=== PATIENT | female | born 1935 | race African-American/Black ===

== ENCOUNTER 2017-04-08 09:42 | Outpatient (CLI) | payer MEDICARE, MEDICAID ==
[~2017-04-08 09:42] MED LIST: NEOMYC-POLYM-D3.5 G1 OP; NKM; PRED FORTE1 ML OP; ZYMAXID2.5 ML LEFT EYE
--- NOTE | 2017-04-08 16:22 | GI Initial Consult Note ---
History of Present Illness General Date patient seen: Apr 08, 2017 Time patient seen: 10:00 Referring physician: JAMILAH Reason for Consultation: ABDOMINAL PAIN Present Illness HPI 81 year old pleasant female patient referred by Dr. Andrade for c/o of abdominal pain and weight loss. According to the patient, she had "alot" of weight loss in the past few months. She was admitted here at [facility] last year s/p EGD with noted to have a hiatal hernia and biopsy results showed H. Pylori positive which the patient states as not been treated. Denies any N/V /D. Home Meds Reported Medications Prednisolone Acetate (PRED FORTE) 1 Ml Drops.susp, 1 ML OP 03/18/16 Gatifloxacin (ZYMAXID) 2.5 Ml Drops, 2.5 ML LEFT EYE, ML 03/18/16 Kevin/Polymyx B Sulf/Dexameth (XJRBQT-MOCUX-EZGXRLV EYE OINTM) 3.5 Gm Oint...g., 3.5 GM OP, GM 03/18/16 No Known Medications* (NKM - No Known Medications*) ., 0 ., 0 Refills 03/08/16 Med list reviewed/reconciled: Yes Allergies: Coded Allergies: PENICILLINS (Verified Allergy, Mild, 03/07/16) Patient History History Provided By: Patient, Medical Record PMH Narrative Past Medical History: see triage record Past Surgical History: hysterectomy, other - cataract/retinal detachment Social History: Denies: smoking Social History Narrative with daughter Now: No Reviewed Nursing Documentation: PMH: Agreed, PSxH: Agreed Nursing Documentation-PMH Hx Cardiac Problems: No Hx Cancer: No Hx Gastrointestinal Problems: HH, gastritis Hx Neurological Problems: No Social History: Denies: alcohol use, drug use, other, smoking Review of Systems All Other Systems: negative except mentioned in HPI Physical Exam T 98.5 BP 134/56 P 70 98 RA HT 5'1 WT 174.2 Sp02 EP Interpretation: reviewed General Appearance: well appearing, no apparent distress, alert Head: normocephalic EENT: normal ENT inspection Neck: supple Respiratory: normal breath sounds, no respiratory distress Cardiovascular: normal rate Gastrointestinal: normal inspection, non tender, soft Rectal: deferred Genitourinary: normal inspection Musculoskeletal: normal inspection, back normal Neurologic: normal inspection, alert, oriented x3, responsive Psychiatric: normal inspection, judgement/insight normal, memory normal Skin: normal inspection, normal color, no rash Lymphatic: normal inspection, no adenopathy GI: Plan Problems: (1) Colonoscopy planned (2) Hiatal hernia (3) Gastritis (4) Helicobacter pylori (H. pylori) (5) Abdominal pain Plan S/P EGD SUMMARY 03/19/16 1. A 1 to 2 cm hiatal hernia. 2. Status post random biopsy of the stomach. >> H. Pylori POSITIVE 3. No lesions were identified to explain the patient's pain. Pt scheduled for colonoscopy 04/14/17. - CLD + Suprep prep instructions given. labs to be drawn: CBC, CMP, CEA monitor weight loss, will consider APCT rx H. Pylori Tx >> Amox + biaxin + Omeprazole Seen with Dr. Clark. Thank you for referring this patient. Zamzam Noonan N.P. Apr 08, 2017 16:22
== END 2017-04-08 10:15 | disposition home or self-care (01) ==
LOC: PAN 09:42
DX: K44.9 Diaphragmatic hernia without obstruction or gangrene (principal); K29.70 Gastritis, unspecified, without bleeding; A04.8 Other specified bacterial intestinal infections; R10.9 Unspecified abdominal pain; Z88.0 Allergy status to penicillin; R63.4 Abnormal weight loss; Z79.52 Long term (current) use of systemic steroids
CPT/HCPCS: 99201

== ENCOUNTER 2017-04-14 05:39 | Day surgery (SDC) | payer MEDICARE, MEDICAID ==
[~2017-04-14] VITALS: Ht 153.7 cm; Wt 77.1 kg
[2017-04-14] VITALS (8 sets, daily range): BP systolic 136–186; BP diastolic 57–100
[2017-04-14] MEDS ORDERED: ZOFRAN8 MG ORAL (07:47)
[2017-04-14] MEDS ORDERED: LUMIGAN2.5 ML LEFT EYE (07:47)
[2017-04-14] MEDS ORDERED: SIMBRINZA 1%-0.28 ML LEFT EYE (07:47)
[2017-04-14] MEDS ORDERED: OMEPRAZOLE40 M1 ORAL (07:47)
[2017-04-14] MEDS ORDERED: BISACODYL5 MG ORAL (07:47)
[2017-04-14] MEDS ORDERED: AMOXICILLI250 MG/5 M ORAL (07:47)
[2017-04-14] MEDS ORDERED: DICYCLOMINE HCL10 MG PO (07:47)
[2017-04-14] MEDS ORDERED: CLARITHROMYCIN500 MG PO (07:47)
[2017-04-14 08:01] LABS: BASOPHILS % (AUTO) 1.3 % (0.0-2.0); EOSINOPHILS % (AUTO) 2.3 % (0.0-3.0); LYMPHOCYTES % (AUTO) 19.5 % (20.0-45.0); MEAN CORPUSCULAR HEMOGLOBIN 30.4 PG (27.0-31.0); MEAN CORPUSCULAR VOLUME 92 FL (80-99); MEAN PLATELET VOLUME 5.6 FL (6.5-10.1); MONOCYTES % (AUTO) 7.1 % (1.0-10.0); NEUTROPHILS % (AUTO) 69.8 % (45.0-75.0); PLATELET COUNT 427 K/UL (150-450); RED CELL DISTRIBUTION WIDTH 13.6 % (11.6-14.8); WHITE BLOOD COUNT 8.1 K/UL (4.8-10.8)
--- NOTE | 2017-04-14 08:39 | Anethesia Preoperative Eval ---
Anesthesia Pre-op PMH/ROS General Date of Evaluation: Apr 14, 2017 Anesthesiologist: Emigdio ASA Score: ASA 2 Mallampati Score Class I : Soft palate, uvula, fauces, pillars visible Class II: Soft palate, uvula, fauces visible Class III: Soft palate, base of uvula visible Class IV: Only hard plate visible Mallampati Classification: Class II Surgeon: Amber Diagnosis: Weight Loss Surgical Procedure: Colonoscopy Anesthesia History: none Family History: no anesthesia problems Allergies: Coded Allergies: PENICILLINS (Verified Allergy, Mild, 03/07/16) Medications: see eMAR Past Medical History Cardiovascular: Denies: CAD, HTN, [place], arrhythmia, other, valve dz Pulmonary: Denies: COPD, RUPESH, asthma, other Gastrointestinal/Genitourinary: Reports: other - abdominal hernia, Denies: CRI, ESRD, GERD Neurologic/Psychiatric: Reports: depression/anxiety, Denies: CVA, TIA, dementia, other Endocrine: Denies: DM, hypothyroidism, other, steroids HEENT: Denies: KOBUK (L), KOBUK (R), cataract (L), cataract (R), glaucoma, other Hematology/Immune: Denies: DVT, anemia, bleeding disorder, other Musculoskeletal/Integumentary: Denies: DDD, DJD, OA, RA, edema, other PSxH Narrative: Deniees Anesthesia Pre-op Phys. Exam Physician Exam Last Vital Signs Date Time Temp Pulse Resp B/P Pulse Ox O2 Delivery O2 Flow Rate FiO2 04/14/17 07:32 98.1 71 20 142/62 100 Room Air Constitutional: NAD Cardiovascular: RRR Respiratory: CTA Airway Exam Mallampati Score: Class II MO: full ROM: full Teeth: intact Anesthesia Pre-op A/P Labs Hematology Test 04/14/17 07:30 White Blood Count 8.1 K/UL (4.8-10.8) Red Blood Count 3.90 M/UL (4.20-5.40) L Hemoglobin 11.9 G/DL (12.0-16.0) L Hematocrit 35.9 % (37.0-47.0) L Mean Corpuscular Volume 92 FL (80-99) Mean Corpuscular Hemoglobin 30.4 PG (27.0-31.0) Mean Corpuscular Hemoglobin Concent 33.0 G/DL (32.0-36.0) Red Cell Distribution Width 13.6 % (11.6-14.8) Platelet Count 427 K/UL (150-450) Mean Platelet Volume 5.6 FL (6.5-10.1) L Neutrophils (%) (Auto) 69.8 % (45.0-75.0) Lymphocytes (%) (Auto) 19.5 % (20.0-45.0) L Monocytes (%) (Auto) 7.1 % (1.0-10.0) Eosinophils (%) (Auto) 2.3 % (0.0-3.0) Basophils (%) (Auto) 1.3 % (0.0-2.0) Studies Pre-op Studies: EKG - RBBB-baseline Risk Assessment & Plan Assessment: ASA II Plan: MAC Status Change Before Surgery: No Pre-Antibiotics Drug: N/A RC SANTAMARIA M.D. Apr 14, 2017 08:39
[2017-04-14] MEDS ORDERED: LR 1000ml 1,000 ML IVLG SCH (08:53)
[2017-04-14] MEDS ORDERED: Lidocaine 1% MPF 10mg/ml 5ml ONE (09:00)
[2017-04-14] MEDS ORDERED: Propofol 10mg/ml 20ml IV ONE (09:00)
[2017-04-14] MEDS ORDERED: DiphenhydrAMINE 50mg/ml Inj IVP PRN (09:00)
[2017-04-14 09:04] LABS: ALANINE AMINOTRANSFERASE 6 U/L (3-33); ALBUMIN/GLOBULIN RATIO 0.9 (1.0-2.7); ANION GAP 15 (5-15); ASPARTATE AMINO TRANSFERASE 12 U/L (5-40); CALCIUM 8.9 mg/dL (8.6-10.2); CARBON DIOXIDE 23 mEQ/L (20-30); CHLORIDE 105 mEQ/L (98-107); CREATININE 0.7 mg/dL (0.5-0.9); HEMOLYSIS 69; POTASSIUM 4.8 mEQ/L (3.4-4.9); SODIUM 143 mEQ/L (135-145); TOTAL PROTEIN 6.7 g/dL (6.6-8.7)
--- NOTE | 2017-04-14 09:23 | Pre-Procedure Note/Attestation ---
Pre-Procedure Note/Attestation Complete Prior to Procedure Planned Procedure: not applicable Procedure Narrative: colonoscopy Indications for Procedure Pre-Operative Diagnosis: wt loss Attestation I attest that I discussed the nature of the procedure; its benefits; risks and complications; and alternatives (and the risks and benefits of such alternatives ), prior to the procedure, with the patient (or the patient's legal registered representative). I attest that, if there was a reasonable possibility of needing a blood transfusion, the patient (or the patient's legal registered representative) was given the [facility] of Health Services standardized written summary, pursuant to the Jose Meghana Blood Safety Act ([place] Health and Safety Code # 1645, as amended). I attest that I re-evaluated the patient just prior to the surgery and that there has been no change in the patient's H&P, except as documented below: KARISSA NGUYỄN Apr 14, 2017 09:23
--- NOTE | 2017-04-14 09:23 | Short Stay Surgery H&P ---
History of Present Illness History of Present Illness Chief Complaint see full dictation HPI Nirali Costa is a 81 year old female who was admitted on for Weight Loss Patient History Allergies: Coded Allergies: PENICILLINS (Verified Allergy, Mild, 03/07/16) PAST MEDICAL HISTORY: Past Surgeries: Social History: Medication History Scheduled Amoxicillin* (Amoxicillin*), 1,000 MG ORAL BID, (Reported) Bimatoprost (Lumigan), 1 DROP LEFT EYE BED, (Reported) Bisacodyl* (Dulcolax*), 5 MG ORAL DAILY, (Reported) Brinzolamide/Brimonid Tart (Simbrinza 1%-0.2% Eye Drops), 1 DROP LEFT EYE BID, ( Reported) Clarithromycin* (Clarithromycin*), 500 MG PO Q12HR, (Reported) Dicyclomine Hcl* (Dicyclomine Hcl*), 10 MG PO QID, (Reported) Omeprazole (Omeprazole), 40 MG ORAL BID, (Reported) Scheduled PRN Ondansetron Hcl* (Zofran*), 4 MG ORAL Q6H PRN for Nausea & Vomiting, (Reported) Discontinued Medications Gatifloxacin (Zymaxid), 2.5 ML LEFT EYE, (Reported) Discontinued Reason: Pt stopped taking med Kevin/Polymyx B Sulf/Dexameth (Tcesbx-Mzoef-Tvhqwao Eye Ointm), 3.5 GM OP, ( Reported) Discontinued Reason: Pt stopped taking med Prednisolone Acetate (Pred Forte), 1 ML OP, (Reported) Discontinued Reason: Pt stopped taking med Physical Exam Vital Signs Last Vital Signs Date Time Temp Pulse Resp B/P Pulse Ox O2 Delivery O2 Flow Rate FiO2 04/14/17 07:32 98.1 71 20 142/62 100 Room Air Labs Laboratory Tests Test 04/14/17 07:30 04/14/17 08:30 White Blood Count 8.1 K/UL (4.8-10.8) Red Blood Count 3.90 M/UL (4.20-5.40) L Hemoglobin 11.9 G/DL (12.0-16.0) L Hematocrit 35.9 % (37.0-47.0) L Mean Corpuscular Volume 92 FL (80-99) Mean Corpuscular Hemoglobin 30.4 PG (27.0-31.0) Mean Corpuscular Hemoglobin Concent 33.0 G/DL (32.0-36.0) Red Cell Distribution Width 13.6 % (11.6-14.8) Platelet Count 427 K/UL (150-450) Mean Platelet Volume 5.6 FL (6.5-10.1) L Neutrophils (%) (Auto) 69.8 % (45.0-75.0) Lymphocytes (%) (Auto) 19.5 % (20.0-45.0) L Monocytes (%) (Auto) 7.1 % (1.0-10.0) Eosinophils (%) (Auto) 2.3 % (0.0-3.0) Basophils (%) (Auto) 1.3 % (0.0-2.0) Sodium Level 143 mEQ/L (135-145) Potassium Level 4.8 mEQ/L (3.4-4.9) Chloride Level 105 mEQ/L (98-107) Carbon Dioxide Level 23 mEQ/L (20-30) Anion Gap 15 (5-15) Blood Urea Nitrogen 7 mg/dL (7-23) Creatinine 0.7 mg/dL (0.5-0.9) Estimat Glomerular Filtration Rate mL/min (>60) Glucose Level 107 mg/dL (74-106) H Calcium Level 8.9 mg/dL (8.6-10.2) Total Bilirubin 0.2 mg/dL (0.0-1.2) Aspartate Amino Transf (AST/SGOT) 12 U/L (5-40) Alanine Aminotransferase (ALT/SGPT) 6 U/L (3-33) Alkaline Phosphatase 69 U/L (35-104) Total Protein 6.7 g/dL (6.6-8.7) Albumin 3.3 g/dL (3.5-5.2) L Globulin 3.4 g/dL Albumin/Globulin Ratio 0.9 (1.0-2.7) L Carcinoembryonic Antigen Pending Plan Attestation Are the patient's medical conditions optimized for surgery? KARISSA NGUYỄN Apr 14, 2017 09:23
--- NOTE | 2017-04-14 09:56 | Endoscopy Procedure Note ---
Endoscopy Procedure Note Indication for Procedure: wi loss Procedures Performed: colonoscopy Operative Findings/Diagnosis: one polyp Specimen: yes Pt Tolerated Procedure Well: Yes Estimated Blood Loss: none Anesthesiologist: clover Anesthesia: MAC Implant(s) used?: No 50 yrs or older w/o bx or poly: Not Applicable 10yrs. F/U not recommended: Not Applicable KARISSA NGUYỄN Apr 14, 2017 09:56
--- NOTE | 2017-04-14 09:57 | Immediate Post-Op Evaluation ---
Immediate Post-Op Evalulation Immediate Post-Op Evalulation Procedure: Colonoscopy Date of Evaluation: Apr 14, 2017 Time of Evaluation: 09:57 IV Fluids: 500 Blood Products: 0 Estimated Blood Loss: 0 Urinary Output: 0 Blood Pressure Systolic: 184 Blood Pressure Diastolic: 84 Pulse Rate: 70 Respiratory Rate: 16 O2 Sat by Pulse Oximetry: 100 Temperature (Fahrenheit): 97.6 Pain Score (1-10): 0 Nausea: No Vomiting: No Complications 0 Patient Status: awake, reacts, patent, none Hydration Status: adequate Drug: N/a RC SANTAMARIA M.D. Apr 14, 2017 09:57
--- NOTE | 2017-04-14 10:55 | 48 Hour Post Anesthesia Eval ---
Post Anesthesia Evaluation Procedure: Colonoscopy Date of Evaluation: Apr 14, 2017 Time of Evaluation: 10:35 Blood Pressure Systolic: 156 0: 57 Pulse Rate: 85 Respiratory Rate: 16 Temperature (Fahrenheit): 97.6 O2 Sat by Pulse Oximetry: 100 Airway: patent Nausea: No Vomiting: No Pain Intensity: 0 Hydration Status: adequate Cardiopulmonary Status: at baseline Mental Status/LOC: patient returned to baseline Post-Anesthesia Complications: 0 Follow-up care needed: ready to discharge RC SANTAMARIA M.D. Apr 14, 2017 10:55
--- NOTE | 2017-04-14 16:30 | Procedure Note ---
DATE OF PROCEDURE: 04/14/2017 SURGEON: Erich Clark M.D. ANESTHESIOLOGIST: Dr. Beal. PROCEDURE: Colonoscopy with snare polypectomy. INSTRUMENT: Olympus adult flexible colonoscope. INDICATION: Weight loss. The procedure, risks, benefits, and possible consequences, including hemorrhage, aspiration, perforation and infection, and alternative treatments, were explained to the patient/legal guardian by Dr. Erich Clark and the patient/legal guardian understood and accepted these risks. DESCRIPTION OF PROCEDURE: After informed consent was obtained and the patient was adequately sedated, first rectal exam was performed, which was positive for external and internal hemorrhoids. Then, the scope was advanced from rectum into the cecum, documented by appendiceal orifice, ileocecal valve, and upper quadrant palpation. Quality of prep was very good. The patient had one polyp, sessile, measured roughly about 4 to 5 mm in the cecum, removed with the snare polypectomy technique. There were no further polyps seen in this colonoscopy examination. The patient has some diverticulosis in the left colon. Retroflexion of rectum showed evidence of medium-sized internal hemorrhoids. SUMMARY OF FINDINGS: 1. Internal and external hemorrhoids. 2. Diverticulosis. 3. One colonic polyp removed. See above for details. RECOMMENDATIONS: 1. Follow up biopsies and treat accordingly. 2. We will recommend repeat colonoscopy in 5 years. 3. The patient has not had a colonoscopy in the last three years. Erich Clark M.D. DR: JADA JOB#: [id number] CC:
--- NOTE | 2017-04-15 08:15 | Cardiology Report ---
APPROVED REPORT EKG Measurement Heart [id number] AL [id number] Normal sinus rhythm with sinus arrhythmia Right bundle branch block Abnormal ECG
== END 2017-04-14 11:45 | disposition home or self-care (01) ==
LOC: GAS 05:39
DX: R63.4 Abnormal weight loss (principal); D12.0 Benign neoplasm of cecum; K57.30 Diverticulosis of large intestine without perforation or abscess without bleeding; K64.4 Residual hemorrhoidal skin tags; K64.8 Other hemorrhoids; I45.10 Unspecified right bundle-branch block; F32.9 Major depressive disorder, single episode, unspecified; F41.9 Anxiety disorder, unspecified; Z88.0 Allergy status to penicillin
CPT/HCPCS: 36415; 45385; 80053; 82378; 85025; 93005; J0360; J2704; 94003; 94150

== ENCOUNTER 2017-04-29 10:01 | Outpatient (CLI) | payer MEDICARE, MEDICAID ==
[~2017-04-29 10:01] MED LIST changes: +AMOXICILLI250 MG/5 M ORAL; +BISACODYL5 MG ORAL; +CLARITHROMYCIN500 MG PO; +DICYCLOMINE HCL10 MG PO; +LUMIGAN2.5 ML LEFT EYE; +OMEPRAZOLE40 M1 ORAL; +SIMBRINZA 1%-0.28 ML LEFT EYE; +ZOFRAN8 MG ORAL
--- NOTE | 2017-04-29 17:22 | GI Progress Note ---
Assessment/Plan Problems: (1) Constipation ICD Codes: K59.00 - Constipation, unspecified SNOMED: 84248045 (2) Helicobacter pylori (H. pylori) ICD Codes: A04.8 - Other specified bacterial intestinal infections SNOMED: 437456689 (3) Abdominal pain ICD Codes: R10.9 - Unspecified abdominal pain SNOMED: 16423577 (4) Gastritis ICD Codes: K29.70 - Gastritis, unspecified, without bleeding SNOMED: 9936375 Status: stable Status Narrative Seen with Dr. Clark. Assessment/Plan SUMMARY OF FINDINGS: 1. Internal and external hemorrhoids. 2. Diverticulosis. 3. One colonic polyp removed. See above for details. RECOMMENDATIONS: HP +, currently doing treatment rx Linzess 145mcg RTC x 3 months for repeat BT repeat colonoscopy x 5 years Subjective Subjective currently taking tx for HP no GI symptoms Objective T 97.5 BP 156/65 P 66 94 RA General Appearance: no apparent distress, alert Cardiovascular: normal rate Respiratory/Chest: normal breath sounds, no respiratory distress Abdominal Exam: normal bowel sounds, non tender, soft Extremities: normal range of motion, non-tender Zamzam Noonan N.P. Apr 29, 2017 17:22
[2017-04-29] MEDS ORDERED: LINZESS145 MCG PO (17:23)
== END 2017-04-29 10:30 | disposition home or self-care (01) ==
LOC: PAN 10:01
DX: K59.00 Constipation, unspecified (principal); A04.8 Other specified bacterial intestinal infections; R10.9 Unspecified abdominal pain; K29.70 Gastritis, unspecified, without bleeding; Z86.010 Personal history of colon polyps
CPT/HCPCS: 99211

== ENCOUNTER 2018-04-02 13:27 | Outpatient (CLI) | payer MEDICARE, MEDICAID ==
[~2018-04-02 13:27] MED LIST changes: +LINZESS145 MCG PO
[2018-04-02 15:14] VITALS: BP 139/64
[2018-04-02] MEDS ORDERED: HYDRALAZINE HCL25 M1 ORAL (15:19)
[2018-04-02] MEDS ORDERED: GABAPENTIN300 MG ORAL (15:19)
[2018-04-02] MEDS ORDERED: ASPIR-LOW81 MG ORAL (15:19)
[2018-04-02] MEDS ORDERED: VITAMIN D400 INTLU ORAL (15:19)
[2018-04-02] MEDS ORDERED: XOPENEX0.63 MG/3 HHN (15:19)
--- NOTE | 2018-04-02 15:52 | GI Progress Note ---
Assessment/Plan Problems: (1) Helicobacter pylori (H. pylori) ICD Codes: A04.8 - Other specified bacterial intestinal infections SNOMED: 971957179 (2) Abdominal pain ICD Codes: R10.9 - Unspecified abdominal pain SNOMED: 19394111 Status: stable Status Narrative Seen with Dr. Clark. Assessment/Plan labs reviewed >> anemia history of H. Pylori s/p treatment, but never returned for BT constipation stool OB x 3 Breath Test today for H. Pylori RTC after lab results Subjective Gastrointestinal/Abdominal: Reports: no symptoms Objective Last 24 Hour Vital Signs Date Time Temp Pulse Resp B/P (MAP) Pulse Ox O2 Delivery O2 Flow Rate FiO2 04/02/18 15:14 75 139/64 99 General Appearance: WD/WN, no apparent distress, alert Cardiovascular: normal rate Respiratory/Chest: normal breath sounds, no respiratory distress Abdominal Exam: normal bowel sounds, non tender, soft Extremities: normal range of motion, non-tender Radha Noonan NP April 02, 2018 15:52
== END 2018-04-02 14:10 | disposition home or self-care (01) ==
LOC: PAN 13:27
DX: A04.8 Other specified bacterial intestinal infections (principal); R10.9 Unspecified abdominal pain; K59.00 Constipation, unspecified
CPT/HCPCS: 83013; G0463; 99202

== ENCOUNTER 2018-04-03 11:43 | Outpatient (CLI) | payer MEDICARE, MEDICAID ==
[~2018-04-03 11:43] MED LIST changes: +ASPIR-LOW81 MG ORAL; +GABAPENTIN300 MG ORAL; +HYDRALAZINE HCL25 M1 ORAL; +VITAMIN D400 INTLU ORAL; +XOPENEX0.63 MG/3 HHN
== END 2018-04-03 13:43 | disposition home or self-care (01) ==
LOC: LAB 11:43
DX: D64.9 Anemia, unspecified (principal)
CPT/HCPCS: 82270

== ENCOUNTER 2018-05-05 10:32 | Outpatient (CLI) | payer MEDICARE, MEDICAID ==
[2018-05-05 10:52] VITALS: BP 127/61
[2018-05-05] MEDS ORDERED: LINZESS145 MCG PO (10:57)
--- NOTE | 2018-05-06 12:24 | GI Progress Note ---
Assessment/Plan Problems: (1) Helicobacter pylori (H. pylori) ICD Codes: A04.8 - Other specified bacterial intestinal infections SNOMED: 994523869 (2) Hiatal hernia ICD Codes: K44.9 - Diaphragmatic hernia without obstruction or gangrene SNOMED: 33531092 (3) Failure to thrive SNOMED: 14914415 (4) Colonoscopy planned SNOMED: 170217764 (5) Constipation ICD Codes: K59.00 - Constipation, unspecified SNOMED: 34173019 (6) Gastritis ICD Codes: K29.70 - Gastritis, unspecified, without bleeding SNOMED: 9462233 (7) Abdominal pain ICD Codes: R10.9 - Unspecified abdominal pain SNOMED: 86648957 Status: stable Status Narrative Seen with Dr. Clark. Assessment/Plan [address] negative HIDA negative Colonoscopy >> 1 polyp negative H. pylori Breath Test EGD/EUS scheduled 05/13/18. - NPO @ MT day prior to procedure explained. The patient was seen and examined at bedside and all new and available data was reviewed in the patients chart. I agree with the above findings, impression and plan. (Patient seen earlier today. Signature stamp does not reflect patient encounter time.). - Erich Clark MD Subjective Gastrointestinal/Abdominal: Reports: no symptoms Objective T 97.6 BP 127/61 P 64 94 RA General Appearance: WD/WN, no apparent distress, alert Cardiovascular: normal rate Respiratory/Chest: normal breath sounds, no respiratory distress Abdominal Exam: normal bowel sounds, non tender, soft Extremities: normal range of motion, non-tender Radha Noonan TIE INSPECTOR May 06, 2018 12:24
== END 2018-05-05 11:05 | disposition home or self-care (01) ==
LOC: PAN 10:32
DX: K44.9 Diaphragmatic hernia without obstruction or gangrene (principal); B96.81 Helicobacter pylori [H. pylori] as the cause of diseases classified elsewhere; R62.7 Adult failure to thrive; K29.70 Gastritis, unspecified, without bleeding; R10.9 Unspecified abdominal pain; K59.00 Constipation, unspecified
CPT/HCPCS: 99212

== ENCOUNTER 2018-05-13 10:15 | Day surgery (SDC) | payer MEDICARE, MEDICAID ==
[2018-05-13] VITALS (8 sets, daily range): BP systolic 143–170; BP diastolic 41–89
[~2018-05-13] VITALS: Ht 154.9 cm; Wt 93.4 kg
--- NOTE | 2018-05-13 06:45 | Anethesia Preoperative Eval ---
Anesthesia Pre-op PMH/ROS General Date of Evaluation: May 13, 2018 Time of Evaluation: 06:42 Anesthesiologist: german ASA Score: ASA 3 Mallampati Score Class I : Soft palate, uvula, fauces, pillars visible Class II: Soft palate, uvula, fauces visible Class III: Soft palate, base of uvula visible Class IV: Only hard plate visible Mallampati Classification: Class II Surgeon: mariela Diagnosis: abdominal pain, failure to thrive Surgical Procedure: egd w/ eus Anesthesia History: none Social History: current smoker Family History: no anesthesia problems Allergies: Coded Allergies: PENICILLINS (Verified Allergy, Mild, 03/07/16) Medications: see eMAR Past Medical History Cardiovascular: Denies: HTN, CAD, [place], valve dz, arrhythmia, other Pulmonary: Reports: other - bronchitis Gastrointestinal/Genitourinary: Reports: other - costipation, hiatal hernia, gastritis, h. pylori Neurologic/Psychiatric: Reports: depression/anxiety HEENT: Reports: cataract (L), cataract (R), other Musculoskeletal/Integumentary: Reports: other - back pain, joint pain PSxH Narrative: vitrectomy Anesthesia Pre-op Phys. Exam Physician Exam Last Vital Signs Date Time Temp Pulse Resp B/P (MAP) Pulse Ox O2 Delivery O2 Flow Rate FiO2 05/13/18 11:06 Room Air 05/13/18 10:46 98.0 72 18 161/89 (113) 97 98.0 Constitutional: NAD Neurologic: CN 2-12 intact Cardiovascular: RRR Respiratory: CTA Gastrointestinal: S/NT/ND Airway Exam Mallampati Score: Class II MO: full Neck: short TMD: 2fb ROM: limited Dentures: upper, lower Anesthesia Pre-op A/P Studies Pre-op Studies: EKG - nsr, rbbb Risk Assessment & Plan Assessment: asa3 Plan: mac Status Change Before Surgery: No Pre-Antibiotics Drug: Lizbeth Gonzales MD May 13, 2018 06:45
[~2018-05-13 10:15] MED LIST changes: +Atropine Inj 1mg/10ml Syr IV PRN; +DiphenhydrAMINE 50mg/ml Inj IVP PRN; +Midazolam 2mg/2ml Inj IVP PRN; +fentaNYL 100 mcg/2 mL IV PRN
[2018-05-13] MEDS ORDERED: Lidocaine 1% MPF 10mg/ml 5ml ONE (11:00)
[2018-05-13] MEDS ORDERED: Propofol 200mg/20ml IV ONE (11:00)
--- NOTE | 2018-05-13 11:25 | Pre-Procedure Note/Attestation ---
Pre-Procedure Note/Attestation Complete Prior to Procedure Planned Procedure: not applicable Procedure Narrative: EUS/EGD Indications for Procedure Pre-Operative Diagnosis: anemia, wt loss Attestation I attest that I discussed the nature of the procedure; its benefits; risks and complications; and alternatives (and the risks and benefits of such alternatives ), prior to the procedure, with the patient (or the patient's legal manufacturer's representative). I attest that, if there was a reasonable possibility of needing a blood transfusion, the patient (or the patient's legal manufacturer's representative) was given the [facility] of Health Services standardized written summary, pursuant to the Jose Meghana Blood Safety Act ([place] Health and Safety Code # 1645, as amended). I attest that I re-evaluated the patient just prior to the surgery and that there has been no change in the patient's H&P, except as documented below: Erich Clark MD May 13, 2018 11:25
--- NOTE | 2018-05-13 11:26 | Short Stay Surgery H&P ---
History of Present Illness History of Present Illness Chief Complaint anemia, wt loss HPI Harwood Christian Costa is a 82 year old female who was admitted on for Abdominal Pain Patient History Allergies: Coded Allergies: PENICILLINS (Verified Allergy, Mild, 03/07/16) PAST MEDICAL HISTORY: (1) Helicobacter pylori (H. pylori) (2) Abdominal pain (3) Gastritis (4) Failure to thrive (5) Hiatal hernia (6) Constipation (7) Cataract (8) H/O vitrectomy Medication History Scheduled Aspirin* (Aspir-Low*), 81 MG ORAL DAILY, (Reported) Bimatoprost (Lumigan), 1 DROP LEFT EYE BED, (Reported) Brinzolamide/Brimonid Tart (Simbrinza 1%-0.2% Eye Drops), 1 DROP LEFT EYE BID, ( Reported) Dicyclomine Hcl* (Dicyclomine Hcl*), 10 MG PO QID, (Reported) Gabapentin* (Gabapentin*), 300 MG ORAL BEDTIME, (Reported) Hydralazine Hcl* (Hydralazine Hcl*), 25 MG ORAL EVERY 8 HOURS, (Reported) Levalbuterol Hcl (Xopenex*), 0.63 MG HHN Q4H, (Reported) Linaclotide (Linzess), 145 MCG PO PRN, (Reported) Vitamin D (Vitamin D3), 400 UNITS ORAL DAILY, (Reported) Review of Systems Cardiovascular: Reports: no symptoms Respiratory: Reports: no symptoms Skeletal: Reports: no symptoms Gastrointestinal: Reports: no symptoms Genitourinary: Reports: no symptoms Neurologic: Reports: no symptoms Endocrine: Reports: no symptoms Hematologic: Reports: no symptoms Physical Exam Vital Signs Last Vital Signs Date Time Temp Pulse Resp B/P (MAP) Pulse Ox O2 Delivery O2 Flow Rate FiO2 05/13/18 11:06 Room Air 05/13/18 10:46 98.0 72 18 161/89 (113) 97 98.0 Skin: normal HENT: normal Heart: normal Lungs: normal Abdomen: normal Extremities: normal Plan Plan of Care egd/EUS Attestation Are the patient's medical conditions optimized for surgery? Attestation Response: yes Erich Clark MD May 13, 2018 11:26
[2018-05-13] MEDS ORDERED: Sucralfate 1gm tab ORAL SCH (12:15)
--- NOTE | 2018-05-13 12:50 | Immediate Post-Op Evaluation ---
Immediate Post-Op Evalulation Immediate Post-Op Evalulation Procedure: egd/eud/argon plasma coagulation Date of Evaluation: May 13, 2018 Time of Evaluation: 12:38 IV Fluids: 400ml Blood Products: none Estimated Blood Loss: negligible Blood Pressure Systolic: 144 Blood Pressure Diastolic: 41 Pulse Rate: 80 Respiratory Rate: 18 O2 Sat by Pulse Oximetry: 100 Temperature (Fahrenheit): 97.6 Pain Score (1-10): 0 Nausea: No Vomiting: No Complications patient is alert, responsive. patient complain of chest discomfort at the end of the procedure, requesting to sit up, grasping her chest. 12 lead ecg was obtained prior to procedure that revealed nsr, sinus rbbb. after procedure a 12 lead ecg was obtained that revealed nsr with sinus arrhythmia, rbbb, lad. dr. sierra stated esophageal spasms may occur following argon plasma coagulation of the esophagus. carafate was ordered along with lab work, CBC, CPK-MB, CEA, CA19-9, BMP, triponin. Patient Status: awake, reacts, patent Hydration Status: adequate Drug: Lizbeth Gonzales MD May 13, 2018 12:50
--- NOTE | 2018-05-13 12:56 | 48 Hour Post Anesthesia Eval ---
Post Anesthesia Evaluation Procedure: egd/eud/argon plasma coagulation Date of Evaluation: May 13, 2018 Time of Evaluation: 12:50 Blood Pressure Systolic: 170 0: 72 Pulse Rate: 76 Respiratory Rate: 18 Temperature (Fahrenheit): 98.6 O2 Sat by Pulse Oximetry: 100 Airway: patent Nausea: No Vomiting: No Pain Intensity: 0 Hydration Status: adequate Cardiopulmonary Status: stable Mental Status/LOC: patient returned to baseline Post-Anesthesia Complications: none Follow-up care needed: N/A Lizbeth Muhammad MD May 13, 2018 12:56
[2018-05-13 13:08] LABS: ANION GAP 9 mmol/L (5-15); BASOPHILS % (AUTO) 1.3 % (0.0-2.0); BLOOD UREA NITROGEN 13 mg/dL (7-18); CALCIUM 8.9 MG/DL (8.5-10.1); CARBON DIOXIDE 25 MMOL/L (21-32); CHLORIDE 108 MMOL/L (98-107); CREATININE 0.9 MG/DL (0.55-1.30); EOSINOPHILS % (AUTO) 2.1 % (0.0-3.0); HEMOGLOBIN 11.1 G/DL (12.0-16.0); LYMPHOCYTES % (AUTO) 20.8 % (20.0-45.0); MEAN CORPUSCULAR VOLUME 91 FL (80-99); MONOCYTES % (AUTO) 8.5 % (1.0-10.0); NEUTROPHILS % (AUTO) 67.4 % (45.0-75.0); PLATELET COUNT 374 K/UL (150-450); POTASSIUM 4.3 MMOL/L (3.5-5.1); RED BLOOD COUNT 3.95 M/UL (4.20-5.40); RED CELL DISTRIBUTION WIDTH 14.3 % (11.6-14.8); SODIUM 142 MMOL/L (136-145); WHITE BLOOD COUNT 6.6 K/UL (4.8-10.8)
[2018-05-13 13:12] LABS: ALANINE AMINOTRANSFERASE 17 U/L (12-78); ALBUMIN 3.1 G/DL (3.4-5.0); ALBUMIN/GLOBULIN RATIO 0.7 (1.0-2.7); ALKALINE PHOSPHATASE 72 U/L (46-116); AMYLASE 50 U/L (25-115); ASPARTATE AMINO TRANSFERASE 13 U/L (15-37); BILIRUBIN,TOTAL 0.2 MG/DL (0.2-1.0)
[2018-05-13 13:19] LABS: % IRON SATURATION 9 % (15-50); IRON 25 ug/dL (50-175); TOTAL IRON BINDING CAPACITY 268 ug/dL (250-450)
--- NOTE | 2018-05-13 16:30 | Procedure Note ---
DATE OF PROCEDURE: 05/13/2018 SURGEON: Erich Clark M.D. ANESTHESIOLOGIST: Dr. Calles. PROCEDURE: Upper endoscopy with biopsy and hemostasis and endoscopic ultrasound. ANESTHESIA: Per Dr. Calles. INDICATION: Anemia, abdominal pain, weight loss. The procedure, risks, benefits, and possible consequences, including hemorrhage, aspiration, perforation and infection, and alternative treatments, were explained to the patient/legal guardian by Dr. Erich Clark and the patient/legal guardian understood and accepted these risks. DESCRIPTION OF PROCEDURE: After informed consent was obtained and the patient was adequately sedated, first Olympus upper endoscope was advanced from the mouth to the second portion of the duodenum and retroflexion was performed in the stomach. The patient had evidence of diffuse gastritis. Random biopsy from antrum was obtained to rule out H. pylori infection. The patient had few small gastric erosions in the antrum of the stomach. 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 At this time, the upper endoscope was retrieved and EUS scope was introduced. Scanning at the GE junction showed evidence of possibility of a 2-cm left adrenal gland adenoma, possible, I am not 100% sure. This needs to be evaluated with further imaging. Pancreatic parenchyma in the body and tail looked mildly lobulated. There is questionable history of pancreatitis given this lobulation, but there was no obvious calcification. No pancreatic duct dilatation. No obvious tumor or cyst. No obvious celiac axis lymphadenopathy. Then, the scope was advanced to the duodenal bulb and second portion of the duodenum and head of the pancreas was examined. Ampulla was seen with both common bile duct and pancreatic duct coming together. There was no significant pancreatic duct or common bile duct dilatation. No common bile duct stones. Gallbladder was also seen without any obvious pathology. The patient tolerated the procedure very well without any complication. RECOMMENDATIONS: Monitor hemoglobin and hematocrit. Transfuse as needed. Given these multiple AVMs in the stomach and the duodenum, the patient might benefit from either enteroscopy or capsule endoscopy for further evaluation of the rest of the small intestine to see if there are more AVMs or larger AVMs causing anemia. The patient needs outpatient imaging for evaluation of the left adrenal gland. Erichsara Clark M.D. DR: Earl JOB#: [id number] CC:
--- NOTE | 2018-05-14 13:55 | Endoscopy Procedure Note ---
Endoscopy Procedure Note General Indication for Procedure: elevated CA 19-9, anemia Procedures Performed: EGD, other - EUS Operative Findings/Diagnosis: gastic aVM Specimen: yes Pt Tolerated Procedure Well: Yes Estimated Blood Loss: none Anesthesia Anesthesiologist: esther Anesthesia: MAC Inserted Devices Implant(s) used?: No GI Core Measures 50 yrs or older w/o bx or poly: Not Applicable 10yrs. F/U not recommended: Not Applicable Erich Clark MD May 14, 2018 13:55
--- NOTE | 2018-05-17 12:29 | Cardiology Report ---
APPROVED REPORT EKG Measurement Heart [id number] Normal sinus rhythm with sinus arrhythmia Right bundle branch block Abnormal ECG
--- NOTE | 2018-05-17 12:29 | Cardiology Report ---
APPROVED REPORT EKG Measurement Heart [id number] [place] [id number] Normal sinus rhythm with sinus arrhythmia Left axis deviation Right bundle branch block Minimal voltage criteria for LVH, may be normal variant Abnormal ECG
== END 2018-05-13 14:45 | disposition home or self-care (01) ==
LOC: GAS 10:15
DX: D64.9 Anemia, unspecified (principal); R63.4 Abnormal weight loss; K29.50 Unspecified chronic gastritis without bleeding; Q27.33 Arteriovenous malformation of digestive system vessel; F41.9 Anxiety disorder, unspecified; F32.9 Major depressive disorder, single episode, unspecified; F17.200 Nicotine dependence, unspecified, uncomplicated; Z79.82 Long term (current) use of aspirin; Z88.0 Allergy status to penicillin; Z87.19 Personal history of other diseases of the digestive system
CPT/HCPCS: 36415; 43237; 43239; 80053; 82150; 82378; 82553; 83540; 83550; 83690; 84484; 85025; 93005; J2704; 94003; 94150

== ENCOUNTER → 2018-06-16 | Outpatient (CLI) | payer MEDICARE, OTHER ==
[~2018-06-16] MED LIST changes: -Atropine Inj 1mg/10ml Syr IV PRN; -DiphenhydrAMINE 50mg/ml Inj IVP PRN; -Midazolam 2mg/2ml Inj IVP PRN; -fentaNYL 100 mcg/2 mL IV PRN
== END | disposition home or self-care (01) ==
LOC: MRI 10:53
DX: M51.9 Unspecified thoracic, thoracolumbar and lumbosacral intervertebral disc disorder (principal); M54.16 Radiculopathy, lumbar region
CPT/HCPCS: 72148

== ENCOUNTER 2018-07-01 11:15 | Outpatient (CLI) | payer MEDICARE, OTHER ==
[2018-07-01 12:09] LABS: BLOOD UREA NITROGEN 18 mg/dL (7-18); CREATININE 0.9 MG/DL (0.55-1.30)
--- NOTE | 2018-07-01 15:04 | Diagnostic Imaging Report ---
Indication: Incidental left renal mass seen on recent MRI. Further evaluation as obtained Technique: Continuous helical transaxial imaging of the abdomen and pelvis was obtained from the lung bases to the pubic symphysis during intravenous contrast administration. Coronal 2-D reformats were also obtained. Study obtained in a Siemens sensation [address] Automatic Exposure Control was utilized. Total Dose length Product (DLP): [address] Dose Index Volume (CTDIvol): 0.15, 9.75, 12.13, 84.92, 19.95 x 3 mGy Comparison: Previous CT 03/17/2016, previous MRI lumbar spine 06/16/2018 Findings: The rounded signal focus in the anterior cortex of the left kidney is noted on the previous MRI examination. Corresponding lesion on CT is also demonstrated. On noncontrast images the lesion is hyperdense and measures about 9 mm. On arterial phase the lesion is relatively isointense to surrounding adjacent renal cortex. In both venous and delayed phases the lesion is relatively hypodense compared to the surrounding cortex. Based on the appearance this is most likely a proteinaceous cyst. There are additional slightly hyperdense foci demonstrated in the left kidney likely other proteinaceous cysts. There are more typical appearing cysts with low density demonstrated within the right kidney in multiple locations, the largest of which is in the lower pole measuring approximately 3.2 cm. There is slight adrenal prominence again noted. This appears very similar to the prior occasion. The gallbladder is unremarkable. Aortoiliac calcifications are present. A small hiatal hernia is present. Liver attenuation is normal. Spleen is unremarkable. Pancreas is unremarkable. There is no hydronephrosis. Urinary bladder is unremarkable. There is no free fluid. There is narrowing of intervertebral discs and accompanying endplate osteophyte formation. Hypertrophied facet joints also demonstrated.. IMPRESSION: 8 to 9 mm hyperdensity within the left kidney corresponding to the focus in question noted on recent MRI lumbar spine. This is most likely a proteinaceous cyst. One or 2 additional similar-appearing lesions in the left kidney noted. Multiple cysts in the right kidney also demonstrated. Bilateral adrenal hyperplasia unchanged. Hiatal hernia. Other incidental findings as above The CT scanner at [facility] is accredited by the [employer] and the scans are performed using protocols designed to limit radiation exposure to as low as reasonably achievable to attain images of sufficient resolution adequate for diagnostic evaluation.
== END 2018-07-01 13:15 | disposition home or self-care (01) ==
LOC: CAT 11:15
DX: N28.89 Other specified disorders of kidney and ureter (principal); E27.8 Other specified disorders of adrenal gland; K44.9 Diaphragmatic hernia without obstruction or gangrene
CPT/HCPCS: 36415; 74178; 82565; 84520; Q9967

== ENCOUNTER 2018-07-21 09:03 | Outpatient (CLI) | payer MEDICARE, OTHER ==
[~2018-07-21] VITALS: Ht 152.4 cm; Wt 95.3 kg
--- NOTE | 2018-07-21 10:32 | GI Progress Note ---
Assessment/Plan Problems: (1) AVM (arteriovenous malformation) ICD Codes: Q27.30 - Arteriovenous malformation, site unspecified SNOMED: 147434504 (2) Abdominal pain ICD Codes: R10.9 - Unspecified abdominal pain SNOMED: 73593379 (3) Failure to thrive SNOMED: 79076202 (4) Constipation ICD Codes: K59.00 - Constipation, unspecified SNOMED: 02576443 Status: stable Status Narrative Seen with Dr. Clark. 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 I agree with the above findings, impression and plan. (Patient seen earlier today. Signature stamp does not reflect patient encounter time.). - Erich Clark MD Subjective Gastrointestinal/Abdominal: Reports: no symptoms Subjective anemia s/p EUS Objective T 97.7 BP 151/64 P 60 98 RA General Appearance: WD/WN, no apparent distress, alert Cardiovascular: normal rate Respiratory/Chest: normal breath sounds, no respiratory distress Abdominal Exam: normal bowel sounds, non tender, soft Extremities: normal range of motion, non-tender Radha Noonan NP Jul 21, 2018 10:32
[2018-07-21 10:46] VITALS: BP 151/64
[2018-07-21] MEDS ORDERED: ACETAMINOPHEN-1 EAC1 ORAL (10:49)
== END 2018-07-21 09:33 | disposition home or self-care (01) ==
LOC: PAN 09:03
DX: Q27.30 Arteriovenous malformation, site unspecified (principal); R10.9 Unspecified abdominal pain; K59.00 Constipation, unspecified; D64.9 Anemia, unspecified; R62.7 Adult failure to thrive
CPT/HCPCS: 99212